=== PATIENT | male | born 1960 | race Asian ===

== ENCOUNTER 2022-02-20 08:04 | Day surgery (SDC) | payer BC ==
[~2022-02-20] VITALS: Ht 170.2 cm; Wt 60.0 kg
[~2022-02-20 08:04] MED LIST: CEFAZOLIN SOD 2 GM in D5W 50 ML IV ONE
[2022-02-20] MEDS ORDERED: BUPIVACAINE LIPOSOME/PF 266 MG/20 ML VIAL INFIL ONE (13:21)
[2022-02-20] MEDS ORDERED: MORPHINE 4 MG INJ. 4 MG/ML VIAL IVP PRN (13:30)
[2022-02-20] MEDS ORDERED: ONDANSETRON HCL 4 MG/2 ML VIAL IVP PRN (13:30)
[2022-02-20] MEDS ORDERED: HYDROmorphone 1 MG/ML INJ. CARTRIDGE IVP PRN (13:30)
[2022-02-20] MEDS ORDERED: METOCLOPRAMIDE HCL 10 MG/2 ML VIAL IVP PRN (13:30)
[2022-02-20] MEDS ORDERED: ACETAMINOPHEN 325 MG TABLET PO ONE (14:00)
[2022-02-20] MEDS ORDERED: CEFAZOLIN 1 GM IVPB PREMIX 50 ML IV ONE (14:50)
[2022-02-20] MEDS ORDERED: KETOROLAC TROMETHAMINE 30 MG VIAL ONE (14:50)
[2022-02-20] MEDS ORDERED: NS IRRIG SOLN 1000 ML IR ONE (14:50)
[2022-02-20] MEDS ORDERED: BUPIVACAINE /EPINEPHRINE/PF 0.25% 30 ML VIAL ONE (14:50)
[2022-02-20] MEDS ORDERED: LR 1,000 ML IV.SOLN IV ONE (14:50)
[2022-02-20] MEDS ORDERED: ONDANSETRON HCL 4 MG/2 ML VIAL ONE (14:50)
[2022-02-20] MEDS ORDERED: PROPOFOL 200MG/ 20ML VIAL (DIPRIVAN) IV ONE (14:50)
[2022-02-20] MEDS ORDERED: SEVOFLURANE 15 MIN GAS INH ONE (14:50)
[2022-02-20] MEDS ORDERED: CEFAZOLIN 2 GM IVPB PREMIX 50 ML IV ONE (14:50)
[2022-02-20 16:00] VITALS: BP_SYST 130
== END 2022-02-20 16:20 | disposition home or self-care (01) ==
LOC: SDS 08:04 → SMU 08:05 → SDS 16:20
PROVIDERS: ATTEND Surgery
DX: K40.90 Unilateral inguinal hernia, without obstruction or gangrene, not specified as recurrent (principal); I10 Essential (primary) hypertension; E78.5 Hyperlipidemia, unspecified; Z79.899 Other long term (current) drug therapy; Z20.822 Contact with and (suspected) exposure to COVID-19
CPT/HCPCS: 36415; 87426; 49505; 88302; C1781; C9290; J3490; J0690 ×3; J1885; J2405; J2704; J7060; J7120